=== PATIENT | male | born 1975 ===

== ENCOUNTER 2021-09-15 12:42 | Emergency (ER) | payer SELFPAY ==
[~2021-09-15] VITALS: Ht 170.2 cm; Wt 83.9 kg
[2021-09-15] MEDS ORDERED: KEPPRA500 MG PO ×3 (13:00→13:21)
[2021-09-15] MEDS ORDERED: ZOLOFT100 MG PO (13:01)
== END 2021-09-15 13:34 | disposition home or self-care (01) ==
LOC: ED 12:42
DX: R56.9 Unspecified convulsions (principal); Z79.899 Other long term (current) drug therapy
CPT/HCPCS: 99284